=== PATIENT | male | born 1965 | race Caucasian/White ===

== ENCOUNTER 2017-08-04 11:31 | Outpatient (CLI) | payer OTHER ==
[~2017-08-04] VITALS: Ht 200.7 cm; Wt 127.3 kg
[2017-08-04 11:50] VITALS: BP 108/62; PULSE 77; RESP 16; Ht 200.7 cm; Wt 127.3 kg
[2017-08-04] MEDS ORDERED: DULO30CA47 PO (12:09)
[2017-08-04] MEDS ORDERED: SULF1TAB31 PO (12:09)
[2017-08-04] MEDS ORDERED: SIMV20TA PO (12:09)
[2017-08-04] MEDS ORDERED: LISI10TA2 PO (12:09)
--- NOTE | 2017-08-04 12:49 | PN ---
Date/Time of Note Date/Time of Note DATE: 08/04/17 TIME: 12:43 Outpatient Progress Note Chief Complaint Perianal abscess/Hypertension/hyperlipidemia/depression HPI Perineal abscess/patient has peritoneal abscess, patient had IND, patient has open wound, no bleeding or discharge, slightly painful, no fever chill, Hypertension/no headache or dizziness, Hyperlipidemia/no xanthoma, on medication, muscle cramps, Depression/history of depression, on medication, controlled, Review of Systems Const: No Fever, no chills, no Wt. loss, no Fatigue, normal appetite, no diaphoresis. Slightly obese, Eyes: No pain, no discharge, no redness, no visual change, no foreign body. ENT: No pain, no bleeding, no congestion, no sore throat, no dysphagia, no discharge or rhinitis. Lymph: No adenopathy, no tender nodes, no lymphedema. Resp: No SOB, no cough, no sputum, no wheezing, no chest pain. CV: No chest pain, no palpitaions, no BENITEZ, no PND, no edema. GI: Normal appetite, no pain, no nausea, no vomiting, no diarrhea, no blood, no constipation. : No frequency, no urgency, no dysuria, no hematuria, no flank pain, no discharge, no bleeding. Musc: Slight back pain, no neck pain, slight knee pain, no restricted ROM. Skin: No rash, no skin lesions, no erythema, no laceration, no bruising, no pruritus. Perianal open wound, no bleeding or discharge, slight discomfort, Neuro: No SANTORO, no dizziness, no syncope, no seizure, no focal-weakness. Endo: No polyuria, no polydypsia, no dry-skin, no temp-intolerance. Psych: No hallucinations, no depression, no anxiety, no suicidal ideation. Ext: No edema, bilateral knee pain, no ulcer, no weakness. Physical Exam Vital Signs Date Time Temp Pulse Resp B/P Pulse Ox O2 Delivery O2 Flow Rate FiO2 08/04/17 11:50 97.9 77 16 108/62 95 Room Air General Appearance: A 52 year-old female who appears well-developed, well- nourished, in no acute distress. HEENT: Head normocephalic, atraumatic. Pupils equal, round, reactive to light and accommodate. Sclerae are no jaundice. Nasal turbinates pink without erythema or nasal discharge. Mucous membranes pink and moist without lesions. Oropharynx clear without any exudate or discharge. NECK: Supple. Trachea midline, No thyromegaly, No cervical lymphadenopathy, No mass, No carotid bruits, No JVD, Carotid pulses 2+ bilaterally. PULMONARY: Clear to auscultaion bilaterally, No retractions, Chest expansion symmetric bilaterally, no rales, no ronchi, no dulness on percussion. CARDIAC: Normal SI and S2, Regular rate and rythm, no murmur, gallop, or rub. GASTROINTESTINAL: Abdomen is soft, non-tender, Non Rigid, No distention, Positive bowel sounds x4 quadrants, Liver normal. SKIN: Warm, dry, no rash, no bruise, no echmosis. Patient has perianal wound, open, no bleeding or discharge, perineal wound open, no bleeding discharge, EXTREMITIES: Bilateral lower extremities , bilateral knee surgery, total knee replacement, no edema, no phlabitus, pulse palpable, no contracture. MUSCULOSKELETAL: Spine Normal, Non-tender, Normal range of motion, No swelling, no deformity, no clubbing, or cyanosis, the patient has no edema to bilateral lower extremities, dorsalis pedis pulses palpable bilaterally. NEUROLOGIC: The patient is awake, alert, oriented, responding to yes/no questions appropriately, moving all extremities, cranial nerve intact, normal strenght, normal power, normal coordination, normal gait. Allergies Coded Allergies: ibuprofen (Verified Allergy, Intermediate, 08/04/17) PMH Hypertension/hyperlipidemia/depression/bilateral knee surgery/back pain Social Hx No smoking, no drinking, Family Hx Noncontributory Assessment/Plan Impression Perineal abscess//status post IND Hypertension Hyperlipidemia Depression Status post bilateral knee surgery History of back pain, Plan Patient education done about his condition and diseases, patient to increase activity and lose weight, Patient to continue all medication, Patient wound reviewed, local packing done, Patient will be started on Bactrim DS 1 twice daily, Patient to follow with the primary care physician and surgery, Local hygiene, Change the dressing twice a day, Medications Home Meds Reported Medications Simvastatin* (Zocor*) 20 Mg Tablet, 20 MG PO QHS, #30 TAB 08/04/17 Lisinopril* (Lisinopril*) 10 Mg Tablet, 10 MG PO DAILY, #30 TAB 08/04/17 Sulfamethoxazole/Trimethoprim* (Bactrim Ds* Tablet) 1 Each Tablet, 1 TAB PO BID for 7 Days, #14 TAB 08/04/17 Duloxetine Hcl* (Duloxetine Hcl*) 30 Mg Capsule., 30 MG PO DAILY, #30 CAP 08/04/17 POLO CAMACHO MD Aug 04, 2017 12:49
== END 2017-08-04 17:00 | disposition home or self-care (01) ==
LOC: DCC 11:31
PROVIDERS: ATTEND Internal Medicine
DX: L02.215 Cutaneous abscess of perineum (principal); I10 Essential (primary) hypertension; E78.5 Hyperlipidemia, unspecified; F32.9 Major depressive disorder, single episode, unspecified; M54.9 Dorsalgia, unspecified
CPT/HCPCS: G0463

== ENCOUNTER 2017-08-16 11:39 | Outpatient (CLI) | payer OTHER ==
[~2017-08-16] VITALS: Ht 200.7 cm; Wt 123.2 kg
[~2017-08-16 11:39] MED LIST: DULO30CA47 PO; LISI10TA2 PO; SIMV20TA PO; SULF1TAB31 PO
[2017-08-16 11:51] VITALS: BP 136/80; PULSE 91; RESP 16; Ht 200.7 cm; Wt 123.2 kg
--- NOTE | 2017-08-16 12:12 | PN ---
Date/Time of Note Date/Time of Note DATE: 08/16/17 TIME: 12:08 Outpatient Progress Note Chief Complaint Perineal abscess/hypertension/hyperlipidemia HPI Perineal abscess/patient had peritoneal abscess, patient had IND, patient has open wound, clean, no fever chill, no discharge, Hypertension/no headache or dizziness, no local focal weakness, Hyperlipidemia/no xanthoma, on medication, Review of Systems Const: No Fever, no chills, no Wt. loss, no Fatigue, normal appetite, no diaphoresis. Eyes: No pain, no discharge, no redness, no visual change, no foreign body. ENT: No pain, no bleeding, no congestion, no sore throat, no dysphagia, no discharge or rhinitis. Lymph: No adenopathy, no tender nodes, no lymphedema. Resp: No SOB, no cough, no sputum, no wheezing, no chest pain. CV: No chest pain, no palpitaions, no BENITEZ, no PND, no edema. GI: Normal appetite, no pain, no nausea, no vomiting, no diarrhea, no blood, no constipation. : No frequency, no urgency, no dysuria, no hematuria, no flank pain, no discharge, no bleeding. Musc: no back pain, no neck pain, no knee pain, no restricted ROM. Skin: No rash, no skin lesions, no erythema, no laceration, no bruising, no pruritus. Patient has perianal wound open, no bleeding or discharge, Neuro: No SANTORO, no dizziness, no syncope, no seizure, no focal-weakness. Endo: No polyuria, no polydypsia, no dry-skin, no temp-intolerance. Psych: No hallucinations, no depression, no anxiety, no suicidal ideation. Ext: No edema, no pain, no ulcer, no weakness. Physical Exam Vital Signs Date Time Temp Pulse Resp B/P Pulse Ox O2 Delivery O2 Flow Rate FiO2 08/16/17 11:51 98.1 91 16 136/80 96 Room Air General Appearance: A 52 year-old male who appears well-developed, well- nourished, in no acute distress. HEENT: Head normocephalic, atraumatic. Pupils equal, round, reactive to light and accommodate. Sclerae are no jaundice. Nasal turbinates pink without erythema or nasal discharge. Mucous membranes pink and moist without lesions. Oropharynx clear without any exudate or discharge. NECK: Supple. Trachea midline, No thyromegaly, No cervical lymphadenopathy, No mass, No carotid bruits, No JVD, Carotid pulses 2+ bilaterally. PULMONARY: Clear to auscultaion bilaterally, No retractions, Chest expansion symmetric bilaterally, no rales, no ronchi, no dulness on percussion. CARDIAC: Normal SI and S2, Regular rate and rythm, no murmur, gallop, or rub. GASTROINTESTINAL: Abdomen is soft, non-tender, Non Rigid, No distention, Positive bowel sounds x4 quadrants, Liver normal. SKIN: Warm, dry, no rash, no bruise, no echmosis. Perianal wound open, no bleeding discharge, no redness around the wound, EXTREMITIES: Bilateral lower extremities normal, no edema, no phlabitus, pulse palpable, no contracture. MUSCULOSKELETAL: Spine Normal, Non-tender, Normal range of motion, No swelling, no deformity, no clubbing, or cyanosis, the patient has no edema to bilateral lower extremities, dorsalis pedis pulses palpable bilaterally. NEUROLOGIC: The patient is awake, alert, oriented, responding to yes/no questions appropriately, moving all extremities, cranial nerve intact, normal strenght, normal power, normal coordination, normal gait. Allergies Coded Allergies: ibuprofen (Verified Allergy, Intermediate, 08/04/17) PMH No change Social Hx No change Family Hx No change Assessment/Plan Impression Perianal abscess/incision and drainage, Hypertension Hyperlipidemia History of depression Plan Patient has completed antibiotic course, patient has no discharge from perianal wound, the wound is still open and clean, Patient encouraged to follow with the primary care physician, will try to make appointment, Patient also encouraged to follow with the surgery, If any fever or discharge for the primary care or ER, risk of complication explained to the patient, Medications Home Meds Reported Medications Simvastatin* (Zocor*) 20 Mg Tablet, 20 MG PO QHS, #30 TAB 08/04/17 Lisinopril* (Lisinopril*) 10 Mg Tablet, 10 MG PO DAILY, #30 TAB 08/04/17 Sulfamethoxazole/Trimethoprim* (Bactrim Ds* Tablet) 1 Each Tablet, 1 TAB PO BID for 7 Days, #14 TAB 08/04/17 Duloxetine Hcl* (Duloxetine Hcl*) 30 Mg Capsule.dr, 30 MG PO DAILY, #30 CAP 08/04/17 POLO CAMACHO MD Aug 16, 2017 12:12
== END 2017-08-16 17:00 | disposition home or self-care (01) ==
LOC: DCC 11:39
PROVIDERS: ATTEND Internal Medicine
DX: L02.215 Cutaneous abscess of perineum (principal); I10 Essential (primary) hypertension; E78.5 Hyperlipidemia, unspecified; F32.9 Major depressive disorder, single episode, unspecified
CPT/HCPCS: G0463

== ENCOUNTER 2017-08-30 14:43 | Outpatient (CLI) | payer OTHER ==
[~2017-08-30] VITALS: Ht 200.7 cm; Wt 124.5 kg
[2017-08-30 14:57] VITALS: BP 130/81; PULSE 85; RESP 18; Ht 200.7 cm; Wt 124.5 kg
--- NOTE | 2017-08-30 15:39 | PN ---
Date/Time of Note Date/Time of Note DATE: 08/30/17 TIME: 15:35 Outpatient Progress Note Chief Complaint Perirectal abscess/hypertension/hyperlipidemia HPI Perirectal abscess/no infection, no discharge, patient had bleeding slightly once, patient had perirectal abscess, patient has incision and drainage, patient wound still open Hypertension/no headache or dizziness, Hyperlipidemia/no xanthoma, on medication,, Review of Systems Const: No Fever, no chills, no Wt. loss, no Fatigue, normal appetite, no diaphoresis. Eyes: No pain, no discharge, no redness, no visual change, no foreign body. ENT: No pain, no bleeding, no congestion, no sore throat, no dysphagia, no discharge or rhinitis. Lymph: No adenopathy, no tender nodes, no lymphedema. Resp: No SOB, no cough, no sputum, no wheezing, no chest pain. CV: No chest pain, no palpitaions, no BENITEZ, no PND, no edema. GI: Normal appetite, no pain, no nausea, no vomiting, no diarrhea, no blood, no constipation. : No frequency, no urgency, no dysuria, no hematuria, no flank pain, no discharge, no bleeding. Musc: no back pain, no neck pain, no knee pain, no restricted ROM. Skin: No rash, no skin lesions, no erythema, no laceration, no bruising, no pruritus. Patient had perirectal abscess, which was incised, wound still open, had bleeding once, Neuro: No SANTORO, no dizziness, no syncope, no seizure, no focal-weakness. Endo: No polyuria, no polydypsia, no dry-skin, no temp-intolerance. Psych: No hallucinations, no depression, no anxiety, no suicidal ideation. Ext: No edema, no pain, no ulcer, no weakness. Physical Exam Vital Signs Date Time Temp Pulse Resp B/P Pulse Ox O2 Delivery O2 Flow Rate FiO2 08/30/17 14:57 98.0 85 18 130/81 97 Room Air General Appearance: A 52 year-old male who appears well-developed, well- nourished, in no acute distress. HEENT: Head normocephalic, atraumatic. Pupils equal, round, reactive to light and accommodate. Sclerae are no jaundice. Nasal turbinates pink without erythema or nasal discharge. Mucous membranes pink and moist without lesions. Oropharynx clear without any exudate or discharge. NECK: Supple. Trachea midline, No thyromegaly, No cervical lymphadenopathy, No mass, No carotid bruits, No JVD, Carotid pulses 2+ bilaterally. PULMONARY: Clear to auscultaion bilaterally, No retractions, Chest expansion symmetric bilaterally, no rales, no ronchi, no dulness on percussion. CARDIAC: Normal SI and S2, Regular rate and rythm, no murmur, gallop, or rub. GASTROINTESTINAL: Abdomen is soft, non-tender, Non Rigid, No distention, Positive bowel sounds x4 quadrants, Liver normal. SKIN: Warm, dry, no rash, no bruise, no echmosis. Patient had perirectal abscess, incision wound still open, patient has slight bleeding, no discharge, no pus, granulation at the base clean, EXTREMITIES: Bilateral lower extremities normal, no edema, no phlabitus, pulse palpable, no contracture. MUSCULOSKELETAL: Spine Normal, Non-tender, Normal range of motion, No swelling, no deformity, no clubbing, or cyanosis, the patient has no edema to bilateral lower extremities, dorsalis pedis pulses palpable bilaterally. NEUROLOGIC: The patient is awake, alert, oriented, responding to yes/no questions appropriately, moving all extremities, cranial nerve intact, normal strenght, normal power, normal coordination, normal gait. Allergies Coded Allergies: ibuprofen (Verified Allergy, Intermediate, 08/04/17) PMH No change Social Hx No change Family Hx No change Assessment/Plan Impression Perirectal abscess/status post incision and drainage/open wound now, Hypertension Hyperlipidemia Plan Patient will still open, no bleeding, patient did have bleeding sometime ago, patient has slight discomfort, no redness, no discharge, Patient encouraged to see primary care physician, Patient also will be seen by home health care, I have faxed request for home health care, and nurse will inform the primary care physician, and follow with the primary care physician, Discussed with the patient, if any discharge or high fever also talk to primary care physician and also surgeon, Medications Home Meds Reported Medications Simvastatin* (Zocor*) 20 Mg Tablet, 20 MG PO QHS, #30 TAB 08/04/17 Lisinopril* (Lisinopril*) 10 Mg Tablet, 10 MG PO DAILY, #30 TAB 08/04/17 Duloxetine Hcl* (Duloxetine Hcl*) 30 Mg Capsule.dr, 30 MG PO DAILY, #30 CAP 08/04/17 Discontinued Reported Medications Sulfamethoxazole/Trimethoprim* (Bactrim Ds* Tablet) 1 Each Tablet, 1 TAB PO BID for 7 Days, #14 TAB 08/04/17 POLO CAMACHO MD Aug 30, 2017 15:39
== END 2017-08-30 17:00 | disposition home or self-care (01) ==
LOC: DCC 14:43
PROVIDERS: ATTEND Internal Medicine
DX: K61.1 Rectal abscess (principal); I10 Essential (primary) hypertension; E78.5 Hyperlipidemia, unspecified
CPT/HCPCS: G0463